=== PATIENT | female | born 1990 | race Hispanic/Latino ===

== ENCOUNTER 2017-06-07 15:06 | Observation (INO) | payer OTHER ==
[~2017-06-07] VITALS: Ht 165.1 cm; Wt 108.9 kg
[~2017-06-07 15:06] MED LIST: FLEXERIL10 MG PO; HYDROCODONE/ACE1 TA1 PO
[2017-06-07 16:35] LABS: ABSOLUTE BASOPHIL COUNT 0.1 /CUMM (0.0-0.2); ABSOLUTE EOSINOPHIL COUNT 0.4 /CUMM (0.0-0.7); ABSOLUTE GRANULOCYTE CT 7.6 /CUMM (1.4-6.5); ABSOLUTE LYMPH COUNT 3.3 /CUMM (1.2-3.4); ABSOLUTE MONOCYTE COUNT 0.8 /CUMM (0.10-0.60); BASOPHIL % 0.5 % (0.0-2.0); EOSINOPHIL % 3.5 % (0-5); GRANULOCYTE % 62.4 % (42.2-75.2); HEMATOCRIT 43.7 % (37-47); MEAN CORPUSCULAR HGB 29.5 PG (27.0-31.0); MEAN CORPUSCULAR HGB CONC 33.7 G/DL (33.0-37.0); MEAN CORPUSCULAR VOLUME 87.4 FL (81.0-99.0); MEAN PLATELET VOLUME 8.3 FL (7.4-10.4); PLATELET COUNT 381 /CUMM (130-400); RBC DISTRIBUTION WIDTH 13.4 % (11.5-14.5); WHITE BLOOD CELL COUNT 12.2 /CUMM (4.8-10.8)
--- NOTE | 2017-06-07 20:21 | ED GI/GU/ABDOMINAL COMPLAINT ---
History of Present Illness General Chief Complaint: Abdominal Pain/Flank Pain Stated Complaint: ABD PAIN Source: patient Exam Limitations: no limitations Vital Signs & Intake/Output Vital Signs & Intake/Output Vital Signs Date Time Temp Pulse Resp B/P B/P Pulse O2 O2 Flow FiO2 Mean Ox Delivery Rate 06/07 2009 Room Air 06/08 1999 96.3 71 20 122/82 97 Room Air 06/07 1621 98.6 79 18 126/95 95 Room Air Allergies Coded Allergies: MDX - Shellfish (SHELLFISH) (Severe, ANAPHYLAXIS 12/22/13) Uncoded Allergies: TREE NUTS (Severe, ANAPHYLAXIS 12/22/13) MELON (Intermediate, ITCHY THROAT 12/22/13) Reconcile Medications CYCLOBENZAPRINE HCL (Flexeril) 10 MG TABLET 1 TAB PO TID PAIN Avoid operating motor vehicle or heavy machinery HYDROCODONE/ACETAMINOPHEN (Hydrocodon-Acetaminophen 5-325) 5 MG-325 MG TABLET 1 TAB PO Q6HR PRN PAIN Triage Note: PT HERE WITH BILAT LOWER MID ABD THAT STARTED TUESDAY AM. PT REPORTS LAS BM WAS THIS AM AND NORMAL FOR HER. PT DENIES DIFFICULTY WITH URINATION. PT DENIES BLOOD IN HER STOOL. PT STATES SHE HAS FELT SOME NAUSEA BUT NO VOMITING. Triage Nurses Notes Reviewed? yes LMP (ages 10-50): unknown ? n Is pt currently ? No Onset: Abrupt Duration: day(s): (2), constant, continues in ED, getting worse Timing: single episode today Quality/Severity: cramping, moderate Severity Numbers: 8 Location: left lower quadrant, right lower quadrant Radiation: no radiation Activities at Onset: none Prior Abdominal Problems: none Past Sexual History: Unobtainable at this time No Modifying Factors: none Modifying Factors: Worsens With: palpation. Associated Symptoms: abdominal pain, nausea/vomiting HPI: 27-year-old female no past medical history of sensory evaluation of abdominal pain. Patient states and this started about 2 days ago and had been persistent. The pain is located on both sides of her lower abdomen worse on the right. She is grasping as cramping that is intermittently sharp. Associated with nausea but no vomiting and several episodes of diarrhea. No fever no urinary symptoms no vaginal discharge no back pain. She cannot take any medicine for this. She rates the pain as an 8 of 10. No abdominal surgeries. (Vernon Quiñonez) Past History Travel History Traveled to [place] past 21 day No Medical History Any Pertinent Medical History? see below for history Respiratory: asthma Surgical History Surgical History: non-contributory Psychosocial History What is your primary language Yoruba Tobacco Use: Quit >30 days ago ETOH Use: occasional use Illicit Drug Use: denies illicit drug use Family History Hx Contributory? No (Vernon Quiñonez) Review of Systems Review of Systems Constitutional: Reports: no symptoms. EENTM: Reports: no symptoms. Respiratory: Reports: no symptoms. Cardiovascular: Reports: no symptoms. GI: Reports: see HPI, abdominal pain, diarrhea, nausea. Genitourinary: Reports: no symptoms. Musculoskeletal: Reports: no symptoms. Skin: Reports: no symptoms. Neurological/Psychological: Reports: no symptoms. Hematologic/Endocrine: Reports: no symptoms. Immunologic/Allergic: Reports: no symptoms. All Other Systems: Reviewed and Negative (Vernon Quiñonez) Physical Exam Physical Exam General Appearance: well developed/nourished, no apparent distress, alert, awake Head: atraumatic, normal appearance Eyes: Bilateral: normal appearance, PERRL, EOMI. Ears, Nose, Throat, Mouth: hearing grossly normal, moist mucous membrane Neck: normal inspection, supple, full range of motion Respiratory: normal breath sounds, chest non-tender, no respiratory distress, lungs clear Cardiovascular: regular rate/rhythm, normal peripheral pulses Peripheral Pulses: 2+ radial (R), 2+ radial (L) Gastrointestinal: normal bowel sounds, soft, no organomegaly, tenderness (llq, rlq worse), positives Rovsing's Back: normal inspection, normal range of motion, no vertebral tenderness Extremities: normal range of motion Neurologic/Psych: no motor/sensory deficits, awake, alert, oriented x 3, normal gait Skin: intact, normal color, warm/dry Core Measures ACS in differential dx? No Sepsis Present: No Sepsis Focused Exam Completed? No (Vernon Quiñonez) Progress Differential Diagnosis: appendicitis, biliary colic, bowel obstruction, cholecystitis, diverticulitis, ischemic bowel, inflamm bowel dis, intrauterine , kidney stone, ovarian cyst, ovarian torsion, PID/cervicitis, peptic ulcer, PUD/GERD, SBO, UTI/pyelo Plan of Care: Orders Procedure Date/time Status Add-on Test (ER Only) 06/07 2210 Active C-REACTIVE PROTEIN 06/07 1627 Complete PARTIAL THROMBOPLASTIN TIME 06/07 162 Complete PROTHROMBIN TIME 06/07 1622 Complete URINE 06/07 1549 Complete URINALYSIS 06/07 1549 Complete LIPASE 06/07 1549 Complete COMPREHENSIVE METABOLIC PANEL 06/07 1549 Complete CBC WITHOUT DIFFERENTIAL 06/07 1549 Complete AMYLASE 06/07 1549 Complete Laboratory Tests 06/07/17 1940: Urinalysis HEAVY H, Urine Color YEL, Urine Clarity CLEAR, Urine pH 6.0, Ur Specific [place] >= 1.030, Urine Protein NEG, Urine Ketones NEG, Urine Nitrite NEG, Urine Bilirubin NEG, Urine Urobilinogen 0.2, Ur Leukocyte Esterase MOD H, Ur Microscopic SEDIMENT EXAMINED, Urine RBC 1-3, Urine WBC 5-10 H, Ur Epithelial Cells MANY H, Urine Bacteria FEW H, Urine Mucus FEW, Urine Hemoglobin MOD H, Urine Glucose NEG, Urine Test NEGATIVE 06/07/171626: Anion Gap 17 H, Estimated GFR > 60, BUN/Creatinine Ratio 21.7, Glucose 102 H, Calcium 9.9, Total Bilirubin 1.6 H, AST 45 H, ALT 109 H, Alkaline Phosphatase 53, C-Reactive Prot, Quant 3.3 H, Total Protein 8.2, Albumin 5.0, Globulin 3.2, Albumin/Globulin Ratio 1.6, Amylase 37, Lipase 51, CBC w Diff NO MAN DIFF REQ, RBC 5.00, MCV 87.4, MCH 29.5, MCHC 33.7, RDW 13.4, MPV 8.3, Gran % 62.4, Lymphocytes % 27.4, Monocytes % 6.2, Eosinophils % 3.5, Basophils % 0.5, Absolute Granulocytes 7.6 H, Absolute Lymphocytes 3.3, Absolute Monocytes 0.8 H, Absolute Eosinophils 0.4, Absolute Basophils 0.1 06/07/17 162: PT 11.4, INR 1.05, APTT 31 Patient seen and evaluated. She has bilateral lower abdominal pain worse on the right. She has an elevated white blood cell count and elevated CRP. CT scan shows evidence of inflammatory changes in the right lower quadrant around the cecum. The appendix is not able to be visualized. Differential includes acute appendicitis versus adnexal pathology. Case discussed with Dr. Chavez and surgical PA who will be admitted patient for observation. She'll require serial abdominal exams, serial labs, surgical consult, IV fluids, IV antibiotics, IV pain meds. Case discussed with Dr. Orourke he agrees. Diagnostic Imaging: Viewed by Me: CT Scan. Discussed w/RAD: CT Scan. Radiology Impression: PATIENT: PADMINI SINGH PRESENT AGE: 27 PATIENT ACCOUNT NO: [id number] : 91 LOCATION: [facility] ORDERING PHYSICIAN: Vernon DUMONT SERVICE DATE: 06/07/17 EXAM TYPE: CAT - CT ABD & PELVIS W/O IV CONTRAS EXAMINATION: CT ABDOMEN AND PELVIS WITHOUT CONTRAST CLINICAL INFORMATION: Bilateral lower abdominal pain. COMPARISON: None TECHNIQUE : Multidetector volumetric imaging was performed from the superior aspect of the liver through the pubic symphysis. Sagittal and coronal reformatted images were obtained on the technologist's workstation. DLP: 1064.53 mGy-cm FINDINGS: LUNG BASES: The visualized lung bases are unremarkable. LIVER, GALLBLADDER, AND BILIARY TREE: There is diffuse low attenuation of liver parenchyma due to fatty change. No focal liver lesion. There is no intrahepatic bile duct dilatation. The liver is enlarged. The right lobe of liver measures 22 cm superior-inferior. The gallbladder is unremarkable with no evidence of radiopaque gallstones, gallbladder wall thickening, or obvious pericholecystic inflammatory changes. PANCREAS: Unremarkable. SPLEEN: Unremarkable. ADRENAL GLANDS: Unremarkable. KIDNEYS AND URETERS: The kidneys are normal in size, shape, and attenuation. No hydronephrosis, hydroureter, or calculi seen. No perinephric stranding. BLADDER: Unremarkable. MESENTERY/GASTROINTESTINAL TRACT: The cecum lies low in the right side of the pelvis. In this area there is stranding in the mesenteric fat that extends around the right adnexa. The appendix is not specifically identified but given history of pain would have concern for an appendicitis. There is no bowel wall thickening or edema. Moderate amount of scattered stool in the colon. The small bowel loops are normal. ABDOMINAL WALL: No significant hernia is appreciated. LYMPH NODES: Normal. VASCULAR: Unremarkable. PELVIC VISCERA: There is fullness and stranding in the right adnexa with the cecum lying adjacent to the right adnexa. There is concern for appendicitis though the appendix is not specifically seen. An abnormality of the right ovary/adnexa could be further evaluated with pelvic ultrasound. OSSEOUS STRUCTURES: Unremarkable. IMPRESSION: 1. The cecum lies low in the right pelvis adjacent to the right adnexa. There is stranding and edema in this area of the mesentery. Differential considerations would include an appendicitis, though the appendix is not specifically seen, versus a right ovarian or adnexal abnormality. 2. Hepatomegaly with diffuse fatty change of liver. This critical result was discussed with Dr. Maxwell on 11/2017, 9:40 PM and it was ascertained that the content and urgency of the report was understood at the time of direct communication. DICTATED BY: Pawel Hammond MD DATE/TIME DICTATED:06/07/172127 DEPUTY SHERIFF K9 HANDLER:PRUDENCIO DATE/TIME TRANSCRIBED:06/07/172127 CONFIDENTIAL, DO NOT COPY WITHOUT APPROPRIATE AUTHORIZATION. Initial ED EKG: none (Vernon Quiñonez) Departure Departure Disposition: STILL A PATIENT Condition: Stable Clinical Impression Primary Impression: Acute appendicitis Qualifiers: Acute appendicitis type: unspecified acute appendicitis type Qualified Code: K35.80 - Unspecified acute appendicitis Referrals: Patient Has No Primary Care Dr (PCP/Family) Departure Forms: Customer Survey General Discharge Information Admission Note Spoke With: Jose Escudero DO Documentation of Exam: Documentation of any treatments & extenuating circumstances including Concerns Regarding Discharge (functional status, medication knowledge or non-compliance, living conditions, etc.) that warrant an admission rather than observation: [ serial abdominal exams, serial labs, surgical consult, IV fluids, IV antibiotics , IV pain meds.] (Vernon Quiñonez) PA/SAFETY INTERN Co-Sign Statement Statement: ED Attending supervision documentation- [] I saw and evaluated the patient. I have also reviewed all the pertinent lab results and diagnostic results. I agree with the findings and the plan of care as documented in the PA's/SAFETY INTERN's documentation. [X] I have reviewed the ED Record and agree with the PA's/SAFETY INTERN's documentation. [] Additions or exceptions (if any) to the PAs/SAFETY INTERN's note and plan are summarized below: [] (Juan J Orourke DO
--- NOTE | 2017-06-07 22:01 | CT SCAN REPORT ---
EXAMINATION: CT ABDOMEN AND PELVIS WITHOUT CONTRAST CLINICAL INFORMATION: Bilateral lower abdominal pain. COMPARISON: None TECHNIQUE: Multidetector volumetric imaging was performed from the superior aspect of the liver through the pubic symphysis. Sagittal and coronal reformatted images were obtained on the technologist's workstation. DLP: 1064.53 mGy-cm FINDINGS: LUNG BASES: The visualized lung bases are unremarkable. LIVER, GALLBLADDER, AND BILIARY TREE: There is diffuse low attenuation of liver parenchyma due to fatty change. No focal liver lesion. There is no intrahepatic bile duct dilatation. The liver is enlarged. The right lobe of liver measures 22 cm superior-inferior. The gallbladder is unremarkable with no evidence of radiopaque gallstones, gallbladder wall thickening, or obvious pericholecystic inflammatory changes. PANCREAS: Unremarkable. SPLEEN: Unremarkable. ADRENAL GLANDS: Unremarkable. KIDNEYS AND URETERS: The kidneys are normal in size, shape, and attenuation. No hydronephrosis, hydroureter, or calculi seen. No perinephric stranding. BLADDER: Unremarkable. MESENTERY/GASTROINTESTINAL TRACT: The cecum lies low in the right side of the pelvis. In this area there is stranding in the mesenteric fat that extends around the right adnexa. The appendix is not specifically identified but given history of pain would have concern for an appendicitis. There is no bowel wall thickening or edema. Moderate amount of scattered stool in the colon. The small bowel loops are normal. ABDOMINAL WALL: No significant hernia is appreciated. LYMPH NODES: Normal. VASCULAR: Unremarkable. PELVIC VISCERA: There is fullness and stranding in the right adnexa with the cecum lying adjacent to the right adnexa. There is concern for appendicitis though the appendix is not specifically seen. An abnormality of the right ovary/adnexa could be further evaluated with pelvic ultrasound. OSSEOUS STRUCTURES: Unremarkable. IMPRESSION: 1. The cecum lies low in the right pelvis adjacent to the right adnexa. There is stranding and edema in this area of the mesentery. Differential considerations would include an appendicitis, though the appendix is not specifically seen, versus a right ovarian or adnexal abnormality. 2. Hepatomegaly with diffuse fatty change of liver. This critical result was discussed with Dr. Maxwell on 06/07/2017, 9:40 PM and it was ascertained that the content and urgency of the report was understood at the time of direct communication.
[2017-06-07 22:31] LABS: PT 11.4 SEC (9.4-12.5); PTT 31 SEC (25-37)
[2017-06-07] MEDS ORDERED: PROAIR HFA8.5 GM INH (23:50)
--- NOTE | 2017-06-07 23:50 | History & Physical Pre-Op ---
Elizabeth Alvarado 06/07/17 8262: General Information and HPI MD Statement: I have seen and personally examined PADMINI SINGH and documented this H&P. The patient is a 27 year old F who presented with a patient stated chief complaint of []. Source of Information: patient Exam Limitations: no limitations History of Present Illness: This is a 27-year-old female with a past medical history significant for obesity and asthma who presents with a three-day history of periumbilical and right lower quadrant abdominal pain. She thought she was constipated and tried magnesium citrate. She had a large bowel movement but persisted with the pain and developed nausea. Her persistent pain is what prompted her ER visit today. She denies any fevers, chills, vomiting, sick contacts, recent travel, or similar symptoms in the past. Prior to onset of symptoms she had been in her usual state of health. 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 [employer] Allergies/Medications Allergies: Coded Allergies: MDX - Shellfish (SHELLFISH) (Severe, ANAPHYLAXIS 12/22/13) Uncoded Allergies: TREE NUTS (Severe, ANAPHYLAXIS 12/22/13) MELON (Intermediate, ITCHY THROAT 12/22/13) Home Med list Albuterol Sulfate (Proair Hfa) 90 MCG HFA.AER.AD 2 PUF INH Q4-6 PRN PRN ASTHMA (Reported) CYCLOBENZAPRINE HCL (Flexeril) 10 MG TABLET 1 TAB PO TID PAIN Avoid operating motor vehicle or heavy machinery HYDROCODONE/ACETAMINOPHEN (Hydrocodon-Acetaminophen 5-325) 5 MG-325 MG TABLET 1 TAB PO Q6HR PRN PAIN Compliance With Home Meds: GOOD Past History Medical History Respiratory: asthma Surgical History Pertinent Surgical History: non-contributory Past Family/Social History Psychosocial History ETOH Use: occasional use Illicit Drug Use: denies illicit drug use Review of Systems Review of Systems: as per hpi Exam & Diagnostic Data Last 24 Hrs of Vital Signs/I&O Vital Signs Date Time Temp Pulse Resp B/P B/P Pulse O2 O2 Flow FiO2 Mean Ox Delivery Rate 06/07 2009 Room Air 06/08 1999 96.3 71 20 122/82 97 Room Air 06/071 98.6 79 18 126/95 95 Room Air Physical Exam: General: Alert, awake, no acute distress Abdomen: Obese, soft, tender to palpation in the right lower quadrant with rebound and no guarding Extremities: No clubbing, cyanosis, or edema Last 24 Hrs of Labs/Konrad: Laboratory Tests 06/07/171939: Urinalysis HEAVY H, Urine Color YEL, Urine Clarity CLEAR, Urine pH 6.0, Ur Specific [place] >= 1.030, Urine Protein NEG, Urine Ketones NEG, Urine Nitrite NEG, Urine Bilirubin NEG, Urine Urobilinogen 0.2, Ur Leukocyte Esterase MOD H, Ur Microscopic SEDIMENT EXAMINED, Urine RBC 1-3, Urine WBC 5-10 H, Ur Epithelial Cells MANY H, Urine Bacteria FEW H, Urine Mucus FEW, Urine Hemoglobin MOD H, Urine Glucose NEG, Urine Test NEGATIVE 06/07/17 1627: Anion Gap 17 H, Estimated GFR > 60, BUN/Creatinine Ratio 21.7, Glucose 102 H, Calcium 9.9, Total Bilirubin 1.6 H, AST 45 H, ALT 109 H, Alkaline Phosphatase 53, C-Reactive Prot, Quant 3.3 H, Total Protein 8.2, Albumin 5.0, Globulin 3.2, Albumin/Globulin Ratio 1.6, Amylase 37, Lipase 51, CBC w Diff NO MAN DIFF REQ, RBC 5.00, MCV 87.4, MCH 29.5, MCHC 33.7, RDW 13.4, MPV 8.3, Gran % 62.4, Lymphocytes % 27.4, Monocytes % 6.2, Eosinophils % 3.5, Basophils % 0.5, Absolute Granulocytes 7.6 H, Absolute Lymphocytes 3.3, Absolute Monocytes 0.8 H, Absolute Eosinophils 0.4, Absolute Basophils 0.1 06/07/17 1622: PT 11.4, INR 1.05, APTT 31 Diagnostic Data Other Results CT Scan of the Abd/Pelvis 06/07/17: 1. The cecum lies low in the right pelvis adjacent to the right adnexa. There is stranding and edema in this area of the mesentery. Differential considerations would include an appendicitis, though the appendix is not specifically seen, versus a right ovarian or adnexal abnormality. 2. Hepatomegaly with diffuse fatty change of liver. Assessment/Plan Assessment/Plan: This is a 27-year-old female with a past medical history significant for obesity and asthma who presents with a three-day history of periumbilical and right lower quadrant abdominal pain. Workup was obtained and is concerning for acute appendicitis 1. Admit to observation 2. Unasyn 3. NPO/IVF 4. PRN analgesics/antiemetics 5. GI/DVT Px 6. Ambulate/IS/Turn/Cough/Deep Breath 7. Likely OR tomorrow 8. Case discussed with Dr. Escudero As Ranked By This Provider Problem List: 1. Right lower quadrant abdominal pain Kota LOCKEJose 06/08/17 0556: Attending MD Review Statement Attending Statement Attending MD Statement: examined this patient, discuss w/resident/PA/COMMERCIAL LENDING ASSISTANT, agreed w/resident/PA/COMMERCIAL LENDING ASSISTANT, discussed with family, reviewed EMR data (avail), reviewed images Attending Assessment/Plan: Patient seen and examined, agree with above. Abdominal pain since tuesday, lower abdomen, currently more on right, denies anorexia, + nausea. AVSS. Abd-soft, obese, b/l lower abdominal tenderness. Labs WBC 12->10. CT scan - inflammatory changes in right adnexa with base of cecum in the area, can not visualize appendix. Pelvic Miriam - R>L ovary, no other abnormalities. Given abdominal pain and inflammation in area of appendix, the patient will need to be taken for a Lap Appy, NPO/IVf/IV Abx, d/w patient, family, and staff.
--- NOTE | 2017-06-07 23:52 | Admission Core Measures ---
Acute Coronary Syndrome (CM) ACS Core Measures Acute Coronary Syndrome Diagnosis No Congestive Heart Failure (NEW) CHF Core Measures Congestive Heart Failure Diagnosis No Cerebrovascular Accident (NEW) CVA Core Measures CVA/TIA Diagnosis No Venous Thromboembolism VTE Core Branden (View Protocol) VTE Risk Factors No risk factors No Mechanical VTE Prophylaxis d/t N/A MechProphylax Ordered No VTE Pharm Prophylaxis d/t NA PharmProphylax ordered Problem List As ranked by this Provider includes Assessment & Plan 1. Right lower quadrant abdominal pain HOME MEDS Home Med List Albuterol Sulfate (Proair Hfa) 90 MCG HFA.AER.AD 2 PUF INH Q4-6 PRN PRN ASTHMA (Reported) CYCLOBENZAPRINE HCL (Flexeril) 10 MG TABLET 1 TAB PO TID PAIN HYDROCODONE/ACETAMINOPHEN (Hydrocodon-Acetaminophen 5-325) 5 MG-325 MG TABLET 1 TAB PO Q6HR PRN PAIN
[2017-06-08 06:17] LABS: ABSOLUTE BASOPHIL COUNT 0 /CUMM (0.0-0.2); ABSOLUTE EOSINOPHIL COUNT 0.5 /CUMM (0.0-0.7); ABSOLUTE GRANULOCYTE CT 5.9 /CUMM (1.4-6.5); ABSOLUTE LYMPH COUNT 2.8 /CUMM (1.2-3.4); ABSOLUTE MONOCYTE COUNT 0.8 /CUMM (0.10-0.60); BASOPHIL % 0.4 % (0.0-2.0); EOSINOPHIL % 4.9 % (0-5); GRANULOCYTE % 58.5 % (42.2-75.2); HEMATOCRIT 39.7 % (37-47); MEAN CORPUSCULAR HGB CONC 34.1 G/DL (33.0-37.0); MEAN CORPUSCULAR VOLUME 88.1 FL (81.0-99.0); MEAN PLATELET VOLUME 8.4 FL (7.4-10.4); PLATELET COUNT 332 /CUMM (130-400); RBC DISTRIBUTION WIDTH 13.6 % (11.5-14.5)
[2017-06-08 12:02] VITALS: BP 125/63
--- NOTE | 2017-06-08 14:55 | ULTRASOUND REPORT ---
EXAMINATION:US-TRANSVAGINAL CLINICAL INFORMATION: Pelvic pain COMPARISON: No priors available. LMP: 05/22/2017 FINDINGS: UTERUS: The uterus is anteverted. Size: 6.5 x 3.6 x 4.4 cm. Uterine mass: There is no uterine mass. Cervix: Grossly unremarkable. Endometrium: No ultrasound evidence of endometrial lesion. endometrial thickness measures 0.7 cm ADNEXA: Normal Right ovary: Normal in size. 3.4 x 3.3 x 3.3 slightly larger than the LEFT Left ovary: Normal in size. 3.8 x 1.7 x 2.2 FREE FLUID: Trace amount of free fluid. OTHER FINDINGS: None IMPRESSION: Right ovary slightly larger than the LEFT however both contain normal flow. No ultrasound evidence of uterine mass or suspicious lesion found.
--- NOTE | 2017-06-08 18:47 | Operative Report ---
Operative/Inv Procedure Report Surgery Date: 06/08/17 Name of Procedure: Laparoscopic appendectomy Pre-Operative Diagnosis: Acute appendicitis Post-Operative Diagnosis: Same Estimated Blood Loss: less than 50ml Surgeon/Boilermaker Mechanic: Jose Escudero DO Anesthesia: general endotracheal tube IV Fluids: 1100 cc Drains: None Specimens: Appendix Complications: None Condition: Stable Operative Indication: This is a 27-year-old female that presented to the emergency room with abdominal pain. Patient underwent a CT scan there revealed inflammation the area of the appendix however no appendix was visualized. Patient underwent a pelvic ultrasound that was essentially normal. Patient had persistent right lower quadrant tenderness. Given the radiologic findings and the patient's physical exam a decision was made to proceed with a laparoscopic appendectomy. All risks including but not limited to bleeding, infection, and injury to surrounding bowel were discussed in detail. The patient and the family understood everything and decided to proceed. I also expect to the patient that there is a small chance that that appendicitis may not be the cause of her pain, however the appendix will be removed regardless. If her pain persists postoperatively she will need further workup. Operative/Procedure Note Note: The patient was brought to the operating room and placed on the table in supine position. Venodyne stockings were placed and adequate general endotracheal anesthesia was obtained. The patient was prepped and draped in standard surgical fashion. Began the procedure by making a 2 cm transverse incision in the infraumbilical crease. Incision was carried down to the fascia. Once the fascia was clearly visualized it was picked up between 2 Leona clamps and divided in the midline. Once we entered the peritoneum 2 stay 0 Vicryl sutures were placed on each side and a 12 mm blunt port was inserted. The abdominal cavity was insufflated to 15 mmHg. And a 10 mm 30 laparoscope was introduced. Upon initial examination no obvious gross pathology was seen, some hyperemia and inflammatory reaction was noted in the right lower quadrant. Accessory trocars were placed, both 5 mm, one in the left lower quadrant and one suprapubic. Ascending colon was identified and traced proximally, terminal ileum was identified, and we did note the appendix coursing into the pelvis/right cul-de- sac. The base of the appendix was identified and appeared healthy. Tip of the appendix was inflamed and thickened and adhered to the sidewall and to the omentum. Using blunt dissection and harmonic scalpel the appendix was carefully dissected away from surrounding structures. Once the appendix was away from the omentum and the sidewall the mesoappendix was divided using Harmonic scalpel maintaining hemostasis until the appendiceal base was clearly visualized and freely up in the air. At that point we switched to a 5 mm laparoscope and a 45 mm mistry Endo BARAK load was inserted and the base was transected. The appendix was placed in an Endobag and removed through the umbilical trocar site. The abdominal cavity was reinsufflated and we switched back to a 10 mm laparoscope. Staple line was examined and no bleeding was noted. Inflammatory reaction was noted in the right cul-de-sac, no abscess, however it was difficult to visualize all the pelvis anatomy due to the inflammation. No other abnormalities were noted. The pelvis and the right lower quadrant were irrigated until clear. All ports were removed under direct visualization, no obvious bleeding was noted. The umbilical trocar site was closed using 0 Vicryl suture. The skin was closed using 4-0 Monocryl. Steri-Strips and dressings were placed. The patient was successfully extubated and transferred to the recovery room in stable condition. The patient tolerated procedure well with no complications. Findings: Thick/inflamed tip of appendix, inflammatory reaction in right cul-de-sac, unclear if appendicitis caused the reaction of vice versa
[2017-06-08 22:13] VITALS: BP 122/80
[2017-06-09 00:04] VITALS: BP 110/76
[2017-06-09 01:59] VITALS: BP 100/70
[2017-06-09 04:00] VITALS: BP 118/78
--- NOTE | 2017-06-09 07:49 | PN- Student ---
See Addendum Eugene Lopez 06/09/17 0731: Subjective Subjective: pt states she feels well post-op, mild sob since procedure that feels like previous asthma exacerbations. pain well controlled, oob multiple times, tolerated sips of water last night without n/v. urinating without difficulty. no bm/flatus. denies cp, dizziness, fever, chills Objective Objective: Vital Signs Date Time Temp Pulse Resp B/P B/P Pulse O2 O2 Flow FiO2 Mean Ox Delivery Rate 06/09 0400 98.3 68 16 118/78 93 Nasal 1.5L Cannula 06/09 0159 97.8 68 16 100/70 92 Nasal 1.5L Cannula 06/09 0004 97.9 78 16 110/76 90 Room Air 06/09 0000 92 Nasal 1.5L Cannula 06/08 2213 98.7 63 20 122/80 90 Room Air 06/08 1616 98.2 58 16 127/71 98 Room Air 06/08 1202 97.6 60 19 125/63 97 Room Air Intake & Output 06/09 0800 06/09 0000 06/08 1600 Intake Total 175 1000 Output Total Balance 175 1000 Intake, IV 75 1000 Intake, Oral 100 Patient 240 lb Weight general: resting in bed, mild increasec work of breathing due to recent ambulation, a&o x3 abdomen: soft, dressings c/d/i without surrounding erythema, normoactive bowel sounds throughout, mild incisional and epigatric tenderness cardiac: rrr, no mrg pulm: mild b/l inspiratory wheeze, increased work of breathing, nasal cannula on 1.5 L lower extremities: no edema or erythema, alps in place, nontender, gross motor and sensory function intact, 2+ pt pulses b/l Results Results: Laboratory Tests 06/08/17 0553: Anion Gap 12, Estimated GFR > 60, BUN/Creatinine Ratio 20.0, CBC w Diff NO MAN DIFF REQ, RBC 4.50, MCV 88.1, MCH 30.0, MCHC 34.1, RDW 13.6, MPV 8.4, Gran % 58.5, Lymphocytes % 27.8, Monocytes % 8.4, Eosinophils % 4.9, Basophils % 0.4, Absolute Granulocytes 5.9, Absolute Lymphocytes 2.8, Absolute Monocytes 0.8 H, Absolute Eosinophils 0.5, Absolute Basophils 0 06/07/17 1940: Urinalysis HEAVY H, Urine Color YEL, Urine Clarity CLEAR, Urine pH 6.0, Ur Specific [place] >= 1.030, Urine Protein NEG, Urine Ketones NEG, Urine Nitrite NEG, Urine Bilirubin NEG, Urine Urobilinogen 0.2, Ur Leukocyte Esterase MOD H, Ur Microscopic SEDIMENT EXAMINED, Urine RBC 1-3, Urine WBC 5-10 H, Ur Epithelial Cells MANY H, Urine Bacteria FEW H, Urine Mucus FEW, Urine Hemoglobin MOD H, Urine Glucose NEG, Urine Test NEGATIVE 06/07/17 1627: Anion Gap 17 H, Estimated GFR > 60, BUN/Creatinine Ratio 21.7, Glucose 102 H, Calcium 9.9, Total Bilirubin 1.6 H, AST 45 H, ALT 109 H, Alkaline Phosphatase 53, C-Reactive Prot, Quant 3.3 H, Total Protein 8.2, Albumin 5.0, Globulin 3.2, Albumin/Globulin Ratio 1.6, Amylase 37, Lipase 51, CBC w Diff NO MAN DIFF REQ, RBC 5.00, MCV 87.4, MCH 29.5, MCHC 33.7, RDW 13.4, MPV 8.3, Gran % 62.4, Lymphocytes % 27.4, Monocytes % 6.2, Eosinophils % 3.5, Basophils % 0.5, Absolute Granulocytes 7.6 H, Absolute Lymphocytes 3.3, Absolute Monocytes 0.8 H, Absolute Eosinophils 0.4, Absolute Basophils 0.1 06/07/17 1622: PT 11.4, INR 1.05, APTT 31 Assessment/Plan Assessment: 27 y/o female, pmh asthma, and obesity, pod#1 s/p appendectomy. recovering well , pain well controlled, mild asthma exacerbation with increased work of breathing and b/l wheeze. awaiting return of bowel function. tolerated po hydration well Plan: ? neb treatment for asthma regular diet continue current pain management ppx: SQH, alps, oob. protonix for gi protection oob as tolerated ABX: unasyn, plan to d/c on augmentin x 1 week Lowell Huitron 06/09/17 0800: Subjective Subjective: no chest pain, no calf/leg pain Resident Review Statement Resident Statement: examined this patient, amended to note Other Findings: post op lap appy as expected. will cont out pt abx with augmentin x1w pt with asthma exacerbation (has been going on for a few weeks). Will give duoneb treatment and re eval. advance diet as tolerated, oob, probable dc home later today.
[2017-06-09 08:22] VITALS: BP 114/78
[2017-06-09] MEDS ORDERED: OXYCODONE-ACET1 EACH PO ×2 (11:36→11:42)
[2017-06-09] MEDS ORDERED: DULCOLAX STOOL100 MG PO (11:36)
[2017-06-09] MEDS ORDERED: AUGMENTIN 875-1 EACH PO (11:42)
[2017-06-09] MEDS ORDERED: PERCOCET 5-3251 EACH PO (11:44)
--- NOTE | 2017-06-09 11:52 | Surg Short-stay <48hrs Dis Sum ---
Visit Information Visit Dates Admission Date: 06/07/17 Discharge Date: 06/09/17 Surgical Short Stay DC Summary Admission Diagnosis: RLQ Abdominal Pain Final Diagnosis: Acute Appendicitis Procedure(s): Laparoscopic Appendectomy Summary/Significant Findings: This is a 27-year-old female with a past medical history significant for obesity and asthma who presents with a three-day history of periumbilical and right lower quadrant abdominal pain. She thought she was constipated and tried magnesium citrate. She had a large bowel movement but persisted with the pain and developed nausea. Her persistent pain is what prompted her ER visit today. She denies any fevers, chills, vomiting, sick contacts, recent travel, or similar symptoms in the past. Prior to onset of symptoms she had been in her usual state of health. Workup was obtained and was concerning for acute appendicitis. She was admitted to the surgical service and made NPO, placed on IVF and Unasyn. She was still having pain on hospital day #1 so the decision was made to proceed to the operating room. She underwent a Laparoscopic Appendectomy. Patient tolerated the procedure well. Post operative course was uncomplicated. She did have an asthma flare and responded to a nebulizer on POD# 1. She has a nebulizer at home and will continue these in addition to her albuterol. By time of discharge she was ambulating, voiding, tolerating a regular diet and pain was well controlled with oral analgesia. Plan is for her to finish a completion course of antibiotics in the form of Augmentin for one week. She will also follow up with Dr. Escudero in one to two weeks, or will call sooner with any other problems, questions or concerns. Condition at Discharge: stable Discharge Disposition: home or self care Discharge instructions provided to patient/family: Yes Post discharge follow-up plan: Follow up with Dr. Escudero in 1-2 weeks Copies to: Jose Escudero DO
--- NOTE | 2017-06-09 11:57 | PN- General Surgery ---
Subjective Subjective: Patient doing well. Ambulating, voiding, tolerating a regular diet, and pain well controlled with oral analgesia. No other issues or complaints. Objective Vital Signs and I&Os Vital Signs Date Time Temp Pulse Resp B/P B/P Pulse O2 O2 Flow FiO2 Mean Ox Delivery Rate 06/09 1032 Room Air 06/09 0822 97.9 86 20 114/78 93 Room Air 06/09 0820 93 Room Air 06/09 0400 98.3 68 16 118/78 93 Nasal 1.5L Cannula 06/09 0159 97.8 68 16 100/70 92 Nasal 1.5L Cannula 06/09 0004 97.9 78 16 110/76 90 Room Air 06/09 0000 92 Nasal 1.5L Cannula 06/08 2213 98.7 63 20 122/80 90 Room Air 06/08 1616 98.2 58 16 127/71 98 Room Air 06/08 1202 97.6 60 19 125/63 97 Room Air Intake & Output 06/09 1600 06/09 0800 06/09 0000 06/08 1600 06/08 0800 06/08 0000 Intake Total 750 141 6902 Output Total Balance 356 175 7880 Intake, IV 184 59 3322 Intake, Oral 200 100 Patient 240 lb 240 lb 240 lb Weight Weight Reported by Patient Measurement Method Physical Exam: General: Alert, awake, no acute distress Abdomen: Obese, soft, appropriately ttp, dressings c/d/i, no surrounding edema, erythema or induration Extremities: No clubbing, cyanosis, or edema Current Medications: Current Medications Sig/Lex Start time Last Medication Dose Route Stop Time Status Admin Acetaminophen 1,000 MG .STK-MED ONE 06/08 170 DC IV 06/08 170 Acetaminophen 1,000 MG Q8P PRN 06/07 2345 PO Albuterol Sulfate 3 ML ONCE ONE 06/09 0800 DC 06/09 INH 06/09 0801 0811 Ampicillin Sodium/ 1,500 MG Q6 06/08 235 AC 06/09 Sulbactam Sodium IV 0626 Sodium Chloride 100 ML Ampicillin Sodium/ 3,000 MG Q6 06/07 2359 DC 06/08 Sulbactam Sodium IV 06/08 2357 1146 Sodium Chloride 100 ML Dexamethasone 4 MG .STK-MED ONE 06/09 1931 DC IM 06/08 193 Dextrose/Sodium 1,000 ML .[id number] 06/08 1929 AC 06/08 Chloride IV 2254 Diphenhydramine HCl 50 MG Q6P PRN 06/07 2344 AC IV Docusate Sodium 100 MG DAILY NEEDED PRN 06/08 1929 AC PO Fentanyl Citrate 250 MCG .STK-MED ONE 06/08 1705 DC IM 06/08 170 Heparin Sodium 5,000 UNIT Q8 06/09 06 AC (Porcine) SC Heparin Sodium 5,000 UNIT Q8 06/08 06 DC 06/09 (Porcine) SC 0626 Ipratropium [place] 2.5 ML ONCE ONE 06/09 0800 DC 06/09 INH 06/09 08 0812 Lactated Ringer's 1,000 ML ONCE ONE 06/08 1500 DC 06/08 IV 06/08 2259 1450 Midazolam HCl 2 MG .STK-MED ONE 06/08 1706 DC IM 06/08 170 Morphine Sulfate 2 MG Q2 HRS NEEDED PRN 06/08 1929 AC IV Morphine Sulfate 0 .STK-MED ONE 06/08 1314 DC .ROUTE Morphine Sulfate 2 MG Q2P PRN 06/07 2345 AC 06/08 IV 1313 Morphine Sulfate 4 MG Q2P PRN 06/07 2344 AC IV Ondansetron HCl 4 MG Q6P PRN 06/08 1929 AC IV Ondansetron HCl 4 MG Q6P PRN 06/07 2344 AC IV Oxycodone/ 1 TAB Q4P PRN 06/08 1929 AC 06/09 Acetaminophen PO 0627 Oxycodone/ 2 TAB Q4P PRN 06/08 1929 AC Acetaminophen PO Pantoprazole Sodium 40 MG DAILY 06/08 1000 AC 06/09 IV 0824 Results Last 48 Hours of Labs: Laboratory Tests 06/08 06/07 0553 1940 Chemistry Sodium (137 - 145 mmol/L) 141 Potassium (3.5 - 5.1 mmol/L) 4.1 Chloride (98 - 107 mmol/L) 107 Carbon Dioxide (22 - 30 mmol/L) 23 Anion Gap (5 - 16) 12 BUN (7 - 17 mg/dL) 14 Creatinine (0.5 - 1.0 mg/dL) 0.7 Estimated GFR (>60 ml/min) > 60 BUN/Creatinine Ratio (7 - 25 %) 20.0 Hematology CBC w Diff NO MAN DIFF REQ WBC (4.8 - 10.8 /CUMM) 10.0 RBC (4.20 - 5.40 /CUMM) 4.50 Hgb (12.0 - 16.0 G/DL) 13.5 Hct (37 - 47 %) 39.7 MCV (81.0 - 99.0 FL) 88.1 MCH (27.0 - 31.0 PG) 30.0 MCHC (33.0 - 37.0 G/DL) 34.1 RDW (11.5 - 14.5 %) 13.6 Plt Count (130 - 400 /CUMM) 332 MPV (7.4 - 10.4 FL) 8.4 Gran % (42.2 - 75.2 %) 58.5 Lymphocytes % (20.5 - 51.1 %) 27.8 Monocytes % (1.7 - 9.3 %) 8.4 Eosinophils % (0 - 5 %) 4.9 Basophils % (0.0 - 2.0 %) 0.4 Absolute Granulocytes (1.4 - 6.5 /CUMM) 5.9 Absolute Lymphocytes (1.2 - 3.4 /CUMM) 2.8 Absolute Monocytes (0.10 - 0.60 /CUMM) 0.8 H Absolute Eosinophils (0.0 - 0.7 /CUMM) 0.5 Absolute Basophils (0.0 - 0.2 /CUMM) 0 Urines Urinalysis HEAVY H Urine Color (YEL,AMB,STR) YEL Urine Clarity (CLEAR) CLEAR Urine pH (5.0 - 8.0) 6.0 Ur Specific [place] (1.001 - 1.035) >= 1.030 Urine Protein (NEG,<30 MG/DL) NEG Urine Ketones (NEG) NEG Urine Nitrite (NEG) NEG Urine Bilirubin (NEG) NEG Urine Urobilinogen (0.1 - 1.0 EU/dl) 0.2 Ur Leukocyte Esterase (NEG) MOD H Ur Microscopic SEDIMENT EXAMINED Urine RBC (0 - 5 /HPF) 1-3 Urine WBC (0 - 2 /HPF) 5-10 H Ur Epithelial Cells (NONE,FEW) MANY H Urine Bacteria (NEG/NONE) FEW H Urine Mucus (FEW,NONE) FEW Urine Hemoglobin (NEG) MOD H Urine Glucose (N MG/DL) NEG Urine Test NEGATIVE 06/07 06/07 1627 1622 Chemistry Sodium (137 - 145 mmol/L) 141 Potassium (3.5 - 5.1 mmol/L) 4.0 Chloride (98 - 107 mmol/L) 102 Carbon Dioxide (22 - 30 mmol/L) 22 Anion Gap (5 - 16) 17 H BUN (7 - 17 mg/dL) 13 Creatinine (0.5 - 1.0 mg/dL) 0.6 Estimated GFR (>60 ml/min) > 60 BUN/Creatinine Ratio (7 - 25 %) 21.7 Glucose (65 - 99 mg/dL) 102 H Calcium (8.4 - 10.2 mg/dL) 9.9 Total Bilirubin (0.2 - 1.3 mg/dL) 1.6 H AST (14 - 36 U/L) 45 H ALT (9 - 52 U/L) 109 H Alkaline Phosphatase (<127 U/L) 53 C-Reactive Prot, Quant (<1.0 mg/dL) 3.3 H Total Protein (6.3 - 8.2 g/dL) 8.2 Albumin (3.5 - 5.0 g/dL) 5.0 Globulin (1.9 - 4.2 gm/dL) 3.2 Albumin/Globulin Ratio (1.1 - 2.2 %) 1.6 Amylase (30 - 110 U/L) 37 Lipase (23 - 300 U/L) 51 Coagulation PT (9.4 - 12.5 SEC) 11.4 INR (0.90 - 1.19) 1.05 APTT (25 - 37 SEC) 31 Hematology CBC w Diff NO MAN DIFF REQ WBC (4.8 - 10.8 /CUMM) 12.2 H RBC (4.20 - 5.40 /CUMM) 5.00 Hgb (12.0 - 16.0 G/DL) 14.7 Hct (37 - 47 %) 43.7 MCV (81.0 - 99.0 FL) 87.4 MCH (27.0 - 31.0 PG) 29.5 MCHC (33.0 - 37.0 G/DL) 33.7 RDW (11.5 - 14.5 %) 13.4 Plt Count (130 - 400 /CUMM) 381 MPV (7.4 - 10.4 FL) 8.3 Gran % (42.2 - 75.2 %) 62.4 Lymphocytes % (20.5 - 51.1 %) 27.4 Monocytes % (1.7 - 9.3 %) 6.2 Eosinophils % (0 - 5 %) 3.5 Basophils % (0.0 - 2.0 %) 0.5 Absolute Granulocytes (1.4 - 6.5 /CUMM) 7.6 H Absolute Lymphocytes (1.2 - 3.4 /CUMM) 3.3 Absolute Monocytes (0.10 - 0.60 /CUMM) 0.8 H Absolute Eosinophils (0.0 - 0.7 /CUMM) 0.4 Absolute Basophils (0.0 - 0.2 /CUMM) 0.1 Assessment/Plan Assessment/Plan This is a 27-year-old female with a past medical history significant for obesity and asthma who presents with a three-day history of periumbilical and right lower quadrant abdominal pain. Workup was obtained and is concerning for acute appendicitis. Now s/p Laparoscopic Appendectomy on 06/09/17. Doing well. Plan for discharge today and follow up as an outpatient with Dr. Escudero. Please see DC summary and DC instructions for further details. Problem List: 1. Acute appendicitis 2. S/P appendectomy Core Measures Venous Thromboembolism VTE Risk Factors No risk factors No Mechanical VTE Prophylaxis d/t N/A MechProphylax Ordered No VTE Pharm Prophylaxis d/t NA PharmProphylax ordered
--- NOTE | 2017-06-09 12:00 | Patient Discharge Instructions ---
Discharge Instructions General Discharge Information You were seen/treated for: acute appendicitis You had these procedures: laparoscopic appendectomy Watch for these problems: Redness, swelling, or unusual drainage from incisions. Nausea, vomiting, excessive diarrhea, or no bowel movements. Do not soak the wound: Yes Daily wet to dry dressings: No No bath, but you may shower: Yes Diet Continue normal diet: Yes Activity Full Activity/No Limits: No Activity Self Limited: Yes Pounds, do NOT lift more than: 10 Acute Coronary Syndrome Inclusion Criteria At DC or during hospital stay patient has or had the following: ACS DIAGNOSIS No Discharge Core Measures Meds if any: Prescribed or Continued at Discharge Meds if any: NOT Prescribed or Continued at Discharge Congestive Heart Failure Inclusion Criteria At DC or during hospital stay patient has or had the following: CHF DIAGNOSIS No Discharge Core Measures Meds if any: Prescribed or Continued at Discharge Meds if any: NOT Prescribed or Continued at Discharge Cerebrovascular accident Inclusion Criteria At DC or during hospital stay patient has or had the following: CVA/TIA Diagnosis No Discharge Core Measures Meds if any: Prescribed or Continued at Discharge Meds if any: NOT Prescribed or Continued at Discharge Venous thromboembolism Inclusion Criteria VTE Diagnosis No VTE Type NONE VTE Confirmed by (Test) NONE Discharge Core Measures - Per Current guidelines, there needs to be overlap - treatment for the first 5 days of Warfarin therapy. - If discharged on Warfarin prior to 5 days of - overlap therapy, the patient will need to be - assessed for post discharge needs including - *Post discharge parental anticoagulation - *Warfarin and/or parental anticoagulation education - *Follow up date to check INR post discharge At least 5 days overlap therapy as Inpatient No Meds if any: Prescribed or Continued at Discharge Note: Overlap Therapy is Warfarin and Anticoagulant Meds if any: NOT Prescribed or Continued at Discharge
== END 2017-06-09 13:20 ==
LOC: ERH 15:06 → ERHI 23:46 → PACUH 06-08 18:44 → ENRESERV 06-08 21:04 → ENTRNSPT 06-08 21:48 → EDTRNSPTSTS 06-08 21:58 → 2NA 06-08 22:04 → CMPTRNSPT 06-08 22:13 → ENPENDDIS 06-09 11:46 → ENTRNSPT 06-09 13:00 → EDTRNSPT 06-09 13:06 → EDTRNSPTSTS 06-09 13:06 → 2NA 06-09 13:20 → CMPTRNSPT 06-09 14:00
PROVIDERS: Physician Assistant Medical; Physician Assistant Surgical
DX: K35.80 Unspecified acute appendicitis (principal); E66.9 Obesity, unspecified; Z68.41 Body mass index [BMI] 40.0-44.9, adult; J45.909 Unspecified asthma, uncomplicated
CPT/HCPCS: 6030; 74176; 81001; 81025; 82436; 96372; 96374; 96375; C9399; G0378; J0131; J0690; J1100; J1200; J1644; J1885; J7042; J7120